=== PATIENT | female | born 1980 | race Caucasian/White ===

== ENCOUNTER 2017-10-16 16:57 | Emergency (ER) | payer OTHER, SELFPAY | END 2017-10-16 20:37 | disposition home or self-care (01) | PROVIDERS: Emergency Provider Emergency Medicine; Visit Provider Emergency Medicine | DX: I82.401 Acute embolism and thrombosis of unspecified deep veins of right lower extremity (principal) | CPT/HCPCS: 80048; 82550; 85025; 85379; 93971; 99058; 99284 ==